=== PATIENT | female | born 1950 | race Caucasian/White ===

== ENCOUNTER 2018-04-13 00:57 | Emergency (ER) | payer MEDICARE ==
[2018-04-13 02:43] LABS: #Eosinphils 0.4 thou/uL (0.0-0.7); #Lymphocytes 1.7 thou/uL (1.20-3.40); #Monocytes 0.5 thou/uL (0.11-0.59); #Neutrophils 3.1 thou/uL (1.40-6.50); %Basophils 0.8 % (0.0-1.0); %Eosinophils 7.1 % (0.0-10.0); %Lymphocytes 29.4 % (21.0-51.0); %Monocytes 7.9 % (0.0-10.0); %Neutrophils 54.8 % (42.0-75.0); Hemoglobin 10.7 g/dL (12.0-16.0); Mean Corpuscular HGB CONC 33.4 g/dL (32.0-36.0); Mean Corpuscular Hemoglobin 28.3 pg (27.0-31.0); Mean Corpuscular Volume 84.6 fL (78.0-98.0); Mean Platelet Volume 8.1 fL (7.4-10.4); Platelet Count 286 thou/uL (130-400); RBC Distribution Width 13.2 % (11.5-14.5); White Blood Cell (WBC) Count 5.7 thou/uL (4.8-10.8)
[2018-04-13 03:02] LABS: ALT (SGPT) 8 U/L (8-55); AST (SGOT) 18 U/L (5-34); Albumin 3.9 g/dL (3.4-4.8); Alkaline Phosphatase 158 U/L (40-150); Anion Gap 16 mmol/L (10-20); BUN (Urea Nitrogen) 16 mg/dL (9.8-20.1); Bilirubin, Total 0.5 mg/dL (0.2-1.2); Calc. Creatinine Clearance 0 mL/min (70-130); Calcium 9.9 mg/dL (7.8-10.44); Carbon Dioxide 21 mmol/L (23-31); Chloride 104 mmol/L (98-107); Estimated GFR-MDRD 43; Globulin 4.3 g/dL (2.4-3.5); Glucose 90 mg/dL (80-115); Potassium 4.3 mmol/L (3.5-5.1); Protein, Total 8.2 g/dL (6.0-8.3); Sodium 137 mmol/L (136-145)
--- NOTE | 2018-04-13 09:23 | RAD ---
2 VIEWS RIGHT SHOULDER: Date: 04/13/18 COMPARISON: None. HISTORY: Fall, trauma, pain. FINDINGS: There is a nondisplaced, obliquely oriented fracture involving the distal aspect of the right clavicl e. No widening of the AC or CC interspace. No evidence for dislocation. IMPRESSION: Fracture involving the distal aspect of the right clavicle. POS: [facility]
--- NOTE | 2018-04-13 09:31 | RAD ---
LEFT HAND 3 VIEWS: Date: 04/13/18 COMPARISON: 08/05/14. HISTORY: Pain. FINDINGS: There is marked osteopenia, stable. There is an old, incompletely imaged fracture of the distal right radius. There are multifocal degenerative changes noted involving first interphalangeal joint, as we ll as multiple proximal and distal interphalangeal joints of the left hand. No displaced fracture or evidence of dislocation. No radiopaque foreign body or subcutaneous gas. There is a probable old frac ture involving the base of the fourth proximal phalanx. IMPRESSION: Chronic findings as described above. No acute findings are seen. POS: [facility]
== END 2018-04-13 04:05 | disposition home or self-care (01) ==
LOC: ERS 00:57
DX: S42.034A Nondisplaced fracture of lateral end of right clavicle, initial encounter for closed fracture (principal); K21.9 Gastro-esophageal reflux disease without esophagitis; Z85.3 Personal history of malignant neoplasm of breast; F41.9 Anxiety disorder, unspecified; F31.9 Bipolar disorder, unspecified; G47.00 Insomnia, unspecified; I11.0 Hypertensive heart disease with heart failure; I50.9 Heart failure, unspecified; W19.XXXA Unspecified fall, initial encounter
CPT/HCPCS: 36415; 80053; 85025

== ENCOUNTER 2018-06-13 14:04 | Emergency (ER) | payer MEDICARE ==
[2018-06-13 15:11] LABS: #Eosinphils 0.5 thou/uL (0.0-0.7); #Lymphocytes 1.6 thou/uL (1.20-3.40); #Monocytes 0.4 thou/uL (0.11-0.59); #Neutrophils 4.7 thou/uL (1.40-6.50); %Basophils 0.5 % (0.0-1.0); %Lymphocytes 22.4 % (21.0-51.0); %Neutrophils 64.1 % (42.0-75.0); Hemoglobin 8.5 g/dL (12.0-16.0); Mean Corpuscular HGB CONC 31.9 g/dL (32.0-36.0); Mean Corpuscular Hemoglobin 27.2 pg (27.0-31.0); Mean Corpuscular Volume 85.1 fL (78.0-98.0); Mean Platelet Volume 7.8 fL (7.4-10.4); Platelet Count 251 thou/uL (130-400); RBC Distribution Width 13.4 % (11.5-14.5); Red Blood Cell (RBC) Count 3.12 mill/uL (4.20-5.40); White Blood Cell (WBC) Count 7.3 thou/uL (4.8-10.8)
[2018-06-13 15:22] LABS: INR-International Normal Ratio 1.1; Prothrombin Time 14.7 SEC (12.0-14.7)
[2018-06-13 15:23] LABS: PTT 31.3 SEC (22.9-36.1)
[2018-06-13 15:33] LABS: ALT (SGPT) Less than 7 U/L (8-55); AST (SGOT) 9 U/L (5-34); Albumin 3.3 g/dL (3.4-4.8); Alkaline Phosphatase 117 U/L (40-150); Anion Gap 9 mmol/L (10-20); BUN (Urea Nitrogen) 21 mg/dL (9.8-20.1); Bilirubin, Total 0.3 mg/dL (0.2-1.2); Calc. Creatinine Clearance 0 mL/min (70-130); Calcium 8.5 mg/dL (7.8-10.44); Carbon Dioxide 26 mmol/L (23-31); Chloride 104 mmol/L (98-107); Estimated GFR-MDRD 50; Globulin 3.6 g/dL (2.4-3.5); Glucose 106 mg/dL (80-115); Iron 32 ug/dL (50-170); Iron Binding Capacity, Total 376 mcg/dL (265-497); Potassium 4.3 mmol/L (3.5-5.1); Protein, Total 6.9 g/dL (6.0-8.3); Sodium 135 mmol/L (136-145)
--- NOTE | 2018-06-13 15:35 | RAD ---
PORTABLE CHEST ONE VIEW: 06/13/2018 3:15 p.m. HISTORY: Abdominal pain. GI bleed. Vomiting. Coffee grounds emesis. COMPARISON: 11/09/2016 FINDINGS: The heart is enlarged. There is continued elevation of the right hemidiaphragm. The lungs are well expanded without lobar consolidation, pneumothoraces, she pulmonary edema, or pleural effusions. S urgical clips in the right axilla are again seen. IMPRESSION: No acute process. POS: [facility]
[2018-06-13] MEDS ORDERED: Pantoprazole 40 MG VIAL ONE (17:06)
== END 2018-06-13 20:26 | disposition left against medical advice (07) ==
LOC: ERS 14:04
DX: K92.1 Melena (principal); K21.9 Gastro-esophageal reflux disease without esophagitis; I11.0 Hypertensive heart disease with heart failure; I50.9 Heart failure, unspecified; G62.9 Polyneuropathy, unspecified; F41.9 Anxiety disorder, unspecified; F32.9 Major depressive disorder, single episode, unspecified; Z79.899 Other long term (current) drug therapy; Z79.891 Long term (current) use of opiate analgesic
CPT/HCPCS: 36415; 71045; 80053; 82728; 83540; 83550; 85025; 85610; 85730; 86850; 86900; 86901; 86922; 93005; 96361; 96374; C9113

== ENCOUNTER 2018-07-18 11:53 | Inpatient (IN) | payer MEDICARE ==
--- NOTE | 2018-07-18 14:54 | HP ---
DATE OF ADMISSION: 07/18/2018 PRIMARY CARE PHYSICIAN: Dr. Pino in [place]. REASON FOR ADMISSION: Transferred from [facility] emergency room for hypotension and ne ar syncope. HISTORY OF PRESENT ILLNESS: A 67-year-old female who has underlying history of hypertension who was initially evaluated at [facility] emergency room. The patient reports that yesterday ev ening she ate a cup of valdez beans and about [address] Espinal. Subsequently, she felt the urg e to go to bathroom. When she stood up at that time, she was feeling a little bit dizzy, but she was able to go to restroom. At that time, she had large diarrhea without any pus or blood. When she wa s trying to stand up from commode, she was feeling lightheaded and dizzy, but with some assistance, s he was able to go to her room. She had carpet in her room, but she does not know how she fell down o n the back of her head and she hit her head. She was aware of everything. She did not lose consciou sness. She was not having any headache. She did not have any chest pain, palpitations or shortness of breath, but she was exhausted and very weak. She has to crawl on her body to go to phone and call ed help. When she went to [facility] emergency room, the patient was found hypotensive. The patient was given 3 liters of IV fluid. She had a central line done. As per report, the patie nt was given Narcan. The patient was also given momentarily Levophed. She was found with acute kidn ey failure and subsequently, this patient was transferred to local emergency room and subsequently e patient wanted to transfer to our hospital. When she arrived to our emergency room, the patient was normotensive. She was talking perfectly fine . She was not hurting anywhere in her body. She was only irritated with a central line on her neck. She denies any chest pain or palpitations. She denies any fever or chills. She denies any UTI sym ptoms. She does not have any diarrhea since last bowel movement. She denies any abdominal pain. e denies any focal motor or sensory symptoms. She denies any seizure-like activity. REVIEW OF SYSTEMS: The following complete review of systems was negative, unless otherwise mentioned in the HPI or below: Constitutional: Weight loss or gain, ability to conduct usual activities. Sk in: Rash, itching. Eyes: Double vision, pain. ENT/Mouth: Nose bleeding, neck stiffness, pain, te nderness. Cardiovascular: Palpitations, dyspnea on exertion, orthopnea. Respiratory: Shortness of breath, wheezing, cough, hemoptysis, fever or night sweats. Gastrointestinal: Poor appetite, abdom inal pain, heartburn, nausea, vomiting, constipation, or diarrhea. Genitourinary: Urgency, frequenc y, dysuria, nocturia. Musculoskeletal: Pain, swelling. Neurologic/Psychiatric: Anxiety, depressio n. Allergy/Immunologic: Skin rash, bleeding tendency. Please see my HPI for pertinent positive and negative. All other review of systems reviewed and negative except as mentioned in the HPI. ADDITIONAL INFORMATION: As per report, the patient had a fentanyl patch on her body and she was give n Narcan and she woke up, but the patient reports that this is not true because the patient was given prescription for fentanyl patch and she received it from her pharmacy about a week ago, but it was t oo expensive and that is why the patient tells me that she [facility]. She only takes [place] as needed basis for her pain. She herself claims that she is not abusin g any kind of narcotic medication. 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 PAST SURGICAL HISTORY: Plate in her left wrist and subsequently removed that plate from the left wri st, appendicectomy, carpal tunnel surgery, cholecystectomy, hysterectomy, oophorectomy, bilateral mas tectomy with reconstruction. PAST PSYCHIATRIC HISTORY: Anxiety, depression, insomnia. SOCIAL HISTORY: The patient lives at home by herself. No history of tobacco, alcohol or illicit adolfo g abuse. She is able to ambulate by herself without any need of walker or cane. FAMILY HISTORY: Father has a history of coronary artery disease, congestive heart failure. Mother h ad history of breast cancer and congestive heart failure. ALLERGIES: No known drug allergy. CURRENT HOME MEDICATIONS: The patient does not have any medication with her at this point. Based on record, the patient is on following medications: Xanax 0.25 mg p.o. 3 times daily, Coreg 3.125 mg t wice daily, estradiol 2 mg daily, hydrochlorothiazide 12.5 mg p.o. daily, lisinopril 5 mg p.o. daily, Protonix 40 mg p.o. daily, Lyrica 75 mg twice daily, Phenergan 25 mg every 4 hourly p.r.n., triazola m 0.25 mg p.o. daily. EMERGENCY ROOM COURSE: The patient is given IV fluid at [facility] emergency room. PHYSICAL EXAMINATION: VITAL SIGNS: Most recently, blood pressure 117/49, pulse 67, respiratory rate 20, temperature 98.4, saturation 100% on room air, weight 79.4 kilograms. GENERAL: The patient is currently alert, awake, in no obvious acute distress. HEAD: Normocephalic, atraumatic. EYES: Pupils round and reactive to light. Extraocular muscle intact. ENT: Oropharynx within normal limits. Moist mucous membranes. No oral lesion, no pharyngeal erythe ma, no exudate. NECK: Supple. No JVD, no thyromegaly, no carotid bruit. Central line in place in the right side of the neck. LUNGS: Clear to auscultation without any rhonchi or rales. CARDIAC: S1, S2 regular. No murmur, no gallop, no rub. ABDOMEN: Soft, bowel sounds present, nontender, nondistended. No organomegaly, no mass, no suprapub ic tenderness. BACK: Unremarkable. No CVA tenderness. EXTREMITIES: Upper extremities, passive movement of all joints are normal. Lower extremities, no ed mariah. Good distal pulsation. SKIN: No skin rash. HEMATOLOGICAL: No lymphadenopathy. PSYCHIATRIC: Normal affect. SIGNIFICANT LABORATORY DATA: Glucose 136, BUN 54, creatinine 3.68. Sodium 133, potassium 4.3, chlor [place] 107, carbon dioxide 19, calcium 8.0. LFT, AST 10, ALT 6, alkaline phosphatase 123, albumin 3.2, anion gap 7. Lactic acid 1.4. CBC, WBC 7.2, hemoglobin 8.2, platelet 280,000. ASSESSMENT AND PLAN: 1. Acute kidney failure, prerenal etiology. 2. Hypotension, improved with IV fluid. 3. Near syncopal episode. 4. Fall at home. 5. History of hypertension. 6. History of gastroesophageal reflux disease. 7. Chronic diastolic congestive heart failure, currently compensated. 8. Peripheral neuropathy. 9. Reflex sympathetic dystrophy on chronic pain medication. PLAN: Full admission to telemetry floor. Cardiac monitoring. CT brain to rule out any intracranial process given the patient had a fall on her head. IV fluid. Repeat lab testing tomorrow. Urinalys is, renal ultrasound. Avoid nephrotoxin agent. Strict monitoring input output chart. Monitor neuro status. Resume selected home medication. We will hold antihypertensive medication because of curre ntly relatively low blood pressure. Watch for any fluid overload. Obtain echocardiography. Deep venous thrombosis prophylaxis, heparin 5000 units subcu twice daily. Gastrointestinal prophylax is, Protonix 40 mg p.o. daily. CODE STATUS: The patient is full code. The patient does not have any surrogate decision maker. Disposition plan based on clinical course. We are expecting the patient's stay in hospital more than 2 midnights. Plan of care discussed with the patient in detail.
[2018-07-18 15:45] VITALS: BMI 30.2
[2018-07-18] MEDS ORDERED: hydrALAZINE 20 MG/ML VIAL SLOW IVP PRN (15:46)
[2018-07-18] MEDS ORDERED: Acetaminophen 325 MG TAB PO PRN (15:46)
[2018-07-18] MEDS ORDERED: Loratadine 10 MG TAB PO PRN (15:46)
[2018-07-18] MEDS ORDERED: Sodium Chloride 0.65% Nasal 44 ML BOT EA NARE PRN (15:46)
[2018-07-18] MEDS ORDERED: Eucerin (Mineral Oil/Petrolatum,White) 30 gm Jar TOP PRN (15:46)
[2018-07-18] MEDS ORDERED: Bisacodyl 5 MG TAB PO PRN (15:46)
[2018-07-18] MEDS ORDERED: ALPRAZolam 0.25 MG TAB PO PRN (15:46)
[2018-07-18] MEDS ORDERED: HYDROcodone/Acetaminophen 5/325 mg Tablet PO PRN (15:46)
[2018-07-18] MEDS ORDERED: Ondansetron PF 4 MG/2 ML Vial IVP PRN (15:46)
[2018-07-18] MEDS ORDERED: Bisacodyl 10 MG SUPP PR PRN (15:46)
[2018-07-18] MEDS ORDERED: Artificial Tears 18 DROP/0.9 ML EA EYE PRN (15:46)
[2018-07-18] MEDS ORDERED: Diabetic Tussin 200 MG/10 ML UDCUP PO PRN (15:46)
[2018-07-18] MEDS ORDERED: Cepastat Lozenges 1 LOZ PO PRN (15:46)
[2018-07-18] MEDS ORDERED: Ondansetron ODT 4 MG TAB PO PRN (15:46)
[2018-07-18] MEDS ORDERED: Senokot S 8.6-50 MG TAB PO PRN (15:46)
[2018-07-18] MEDS ORDERED: Loperamide HCl 2 MG CAP PO PRN (15:46)
--- NOTE | 2018-07-18 17:11 | ULT ---
RENAL ULTRASOUND: 07/18/18 HISTORY: Acute renal failure. Multiple longitudinal and transverse images of the kidneys and bladder is obtained using a multihertz curvilinear transducer. Real time and color flow images demonstrate both kidneys to demonstrate gerard ical thinning and some renal atrophy. The right kidney measures 9.6 and left kidney 8.9 cm from pole to pole. No evidence of hydronephrosis or renal mass is seen. The urinary bladder is decompressed due to an indwelling Funez catheter. IMPRESSION: 1. No evidence of ureteral or urinary obstruction. 2. Cortical atrophy of the kidneys. POS: [facility]
--- NOTE | 2018-07-18 17:30 | CT ---
CT BRAIN 07/18/18 HISTORY: Fall. Patient hit back of head. Noncontrast enhanced CT images of the brain obtained. Radiopaque debris is seen in the left external auditory canal. No evidence of acute intracranial masses, hemorrhages, strokes or contusions seen. Ventricles are of normal size. IMPRESSION: Unremarkable CT brain with no evidence of acute intracranial pathology seen. POS: [facility]
[2018-07-18] MEDS: Sodium Chloride 0.9% 1,000 ML IV SCH (18:01)
[2018-07-18 20:22] LABS: Bilirubin Negative (Negative); Blood, Urine Large (Negative); Clarity CLOUDY (Clear); Glucose, Urine (Dipstick) Negative (Negative); Leukocyte Moderate (Negative); Nitrite Negative (Negative); Protein, Urine (Dipstick) 30 mg/dL (Neg-Trace); Specific Gravity, Urine 1.013 (1.002-1.036); Urobilinogen 0.2 mg/dL (0.2-1.0)
[2018-07-18 20:25] LABS: Bacteria/HPF None Seen HPF (None Seen)
[2018-07-18 20:26] LABS: Pathc Cast-AUWi Flag 6.25 (0-2.49); Yeast-AUWi Flag 218.3 (0-25.0)
[2018-07-18 20:32] LABS: RBC/HPF 21-50 HPF (0-3)
[2018-07-18 20:33] LABS: Hyaline Casts/LPF 0-3 HYALINE CAST LPF (0-3 Hyaline); Other Casts/LPF None Seen LPF (0-3 Hyaline); Renal Epithelial 0-3 HPF (0-3); Transitional Epithelial 0-3 HPF (0-3); Yeast-All Forms None Seen HPF (None Seen)
[2018-07-18 20:40] LABS: Creatinine, Urine 93.69 mg/dL (47-110)
[2018-07-18] MEDS ORDERED: Pregabalin 25 MG CAP PO SCH (21:00)
[2018-07-18] MEDS: Heparin 5,000 UNITS/ML VIAL SC SCH (21:02)
[2018-07-18] MEDS ORDERED: Pregabalin 75 MG CAP PO SCH (22:30)
[2018-07-18] MEDS ORDERED: Venlafaxine HCl XR 75 MG CAP PO SCH (22:30)
[2018-07-18] MEDS: Zolpidem Tartrate 5 MG TAB PO PRN (22:41)
[2018-07-19] MEDS: Sodium Chloride 0.9% 1,000 ML IV SCH (05:44)
[2018-07-19 06:25] LABS: #Eosinphils 0.2 thou/uL (0.0-0.7); #Lymphocytes 1.6 thou/uL (1.20-3.40); #Monocytes 0.4 thou/uL (0.11-0.59); #Neutrophils 2.5 thou/uL (1.40-6.50); %Basophils 0.2 % (0.0-1.0); %Eosinophils 3.6 % (0.0-10.0); %Lymphocytes 34.4 % (21.0-51.0); %Neutrophils 53.9 % (42.0-75.0); Hemoglobin 7.9 g/dL (12.0-16.0); Mean Corpuscular HGB CONC 31.4 g/dL (32.0-36.0); Mean Corpuscular Hemoglobin 26.1 pg (27.0-31.0); Mean Corpuscular Volume 83.2 fL (78.0-98.0); Mean Platelet Volume 8.3 fL (7.4-10.4); Platelet Count 224 thou/uL (130-400); RBC Distribution Width 13.6 % (11.5-14.5); Red Blood Cell (RBC) Count 3.04 mill/uL (4.20-5.40); White Blood Cell (WBC) Count 4.6 thou/uL (4.8-10.8)
[2018-07-19 06:35] LABS: ALT (SGPT) Less than 7 U/L (8-55); AST (SGOT) 10 U/L (5-34); Alkaline Phosphatase 108 U/L (40-150); Anion Gap 9 mmol/L (10-20); BUN (Urea Nitrogen) 37 mg/dL (9.8-20.1); Bilirubin, Total Less than 0.2 mg/dL (0.2-1.2); Calc. Creatinine Clearance 38 mL/min (70-130); Calcium 8.2 mg/dL (7.8-10.44); Carbon Dioxide 22 mmol/L (23-31); Chloride 111 mmol/L (98-107); Estimated GFR-MDRD 26; Glucose 88 mg/dL (80-115); Magnesium 1.6 mg/dL (1.6-2.6); Potassium 4.6 mmol/L (3.5-5.1); Sodium 137 mmol/L (136-145)
[2018-07-19] MEDS ORDERED: HYDROcodone/Acetaminophen 10/325 mg Tablet PO PRN (07:04)
[2018-07-19] MEDS ORDERED: traMADol HCl 50 MG TAB PO PRN (07:04)
[2018-07-19] MEDS: cefTRIAXone\\ROCEPHIN 1 GM in Sodium Chloride 0.9% 100 ML IVPB SCH (08:03)
[2018-07-19] MEDS: Dextrose 5 %-0.45 % NaCl 1,000 ML IV SCH (08:03)
[2018-07-19] MEDS ORDERED: Venlafaxine HCl XR 75 MG CAP PO SCH ×2 (09:00→21:00)
[2018-07-19] MEDS: ALPRAZolam 1 MG TAB PO SCH ×2 (09:14→23:30)
[2018-07-19] MEDS: Aspirin 81 mg Enteric Coated Tablet PO SCH (09:14)
[2018-07-19] MEDS: Heparin 5,000 UNITS/ML VIAL SC SCH ×2 (09:14→22:24)
[2018-07-19] MEDS ORDERED: guaiFENesin ER 600 MG TAB PO SCH (09:45)
[2018-07-19] MEDS: Pregabalin 75 MG CAP PO SCH ×2 (10:14→22:23)
[2018-07-19] MEDS: Saccharomyces boulardii 250 MG CAP PO SCH (10:15)
[2018-07-19] MEDS: Carvedilol 6.25 MG TAB PO SCH ×2 (10:15→22:24)
[2018-07-19 10:16] LABS: Lactic Acid 0.6 mmol/L (0.5-2.2)
--- NOTE | 2018-07-19 10:25 | PDOC.PN ---
- Subjective Encounter Start Date: 07/19/18 Encounter Start Time: 07:15 -: old records requested/rev pt feels postnasal drip, no dyspnea, no chest pain, feels better - Objective Resuscitation Status: Resuscitation Status FULL:Full Resuscitation MAR Reviewed: Yes Vital Signs & Weight: Vital Signs (12 hours) Temp Pulse Resp BP Pulse Ox 07/19/18 07:56 98.9 F 64 18 149/65 H 95 07/19/18 03:51 98.7 F 63 20 129/62 95 Weight Weight 185 lb I&O: 07/18/18 07/19/18 07/20/18 07:59 06:59 06:59 Intake Total Output Total Balance Result Diagrams: 07/19/18 06:08 07/19/18 06:08 EKG Reviewed by me: Yes (nsr) Phys Exam - Physical Examination Constitutional: NAD HEENT: PERRLA, moist MMs, sclera anicteric Neck: no JVD, supple Respiratory: no wheezing, no rales, no rhonchi Cardiovascular: RRR, no significant murmur, no rub Gastrointestinal: soft, non-tender, no distention, positive bowel sounds Musculoskeletal: no edema, pulses present Neurological: non-focal, normal sensation Lymphatic: no nodes Psychiatric: normal affect, A&O x 3 Skin: no rash, normal turgor Dx/Plan (1) Acute kidney failure Status: Acute Comment: improving (2) Fall at home Code(s): W19.XXXA - UNSPECIFIED FALL, INITIAL ENCOUNTER; Y92.009 - [facility] Status: Acute (3) Hypotension Status: Resolved (4) Metabolic acidosis Code(s): E87.2 - ACIDOSIS Status: Acute (5) Near syncope Status: Acute (6) UTI (urinary tract infection) Status: Acute (7) Anemia, normocytic normochromic Code(s): D64.9 - ANEMIA, UNSPECIFIED Status: Chronic (8) Anxiety and depression Code(s): F41.9 - ANXIETY DISORDER, UNSPECIFIED; F32.9 - MAJOR DEPRESSIVE DISORDER, SINGLE EPISODE, UNSPECIFIED Status: Chronic (9) Chronic stage c diastolic heart failure Code(s): I50.32 - CHRONIC DIASTOLIC (CONGESTIVE) HEART FAILURE Status: Chronic (10) GERD (gastroesophageal reflux disease) Code(s): K21.9 - GASTRO-ESOPHAGEAL REFLUX DISEASE WITHOUT ESOPHAGITIS Status: Chronic (11) HTN (hypertension) Code(s): I10 - ESSENTIAL (PRIMARY) HYPERTENSION Status: Chronic (12) Hypothyroidism Code(s): E03.9 - HYPOTHYROIDISM, UNSPECIFIED Status: Chronic - Plan cont current plan of care, continue antibiotics, PT/OT * send urine culture * start rocephin 1 gm iv daily * echo pending today * change IVF dex NS at 50 ml per hour * repeat labs tomorrow * medication reviewed as below * symptomatic treatment. * home medication reconciled Review of Systems - Review of Systems ENT: negative: Ear Pain, Ear Discharge, Nose Pain, Nose Discharge, Nose Congestion, Mouth Pain, Mouth Swelling, Throat Pain, Throat Swelling, Other Respiratory: negative: Cough, Dry, Shortness of Breath, Hemoptysis, SOB with Excertion, Pleuritic Pain, Sputum, Wheezing Cardiovascular: negative: chest pain, palpitations, orthopnea, paroxysmal nocturnal dyspnea, edema, light headedness, other Gastrointestinal: negative: Nausea, Vomiting, Abdominal Pain, Diarrhea, Constipation, Melena, Hematochezia, Other Genitourinary: negative: Dysuria, Frequency, Incontinence, Hematuria, Retention , Other Musculoskeletal: negative: Neck Pain, Shoulder Pain, Arm Pain, Back Pain, Hand Pain, Leg Pain, Foot Pain, Other Skin: negative: Rash, Lesions, Ming, Bruising, Other - Medications/Allergies Allergies/Adverse Reactions: Allergies Allergy/AdvReac Type Severity Reaction Status Date / Time No Known Drug Allergies Allergy Verified 01/29/16 12:05 Medications: Current Medications Acetaminophen (Tylenol) 650 mg PO Q4H PRN PRN Reason: Headache/Fever/Mild Pain (1-3) Hydrocodone Bitart/Acetaminophen ([place] 5/325) 1 tab PO Q4H PRN PRN Reason: Moderate Pain (4-6) Hydrocodone Bitart/Acetaminophen ([place] 10/325) 2 tab PO Q4HR PRN PRN Reason: SEVERE Pain (7-10) Alprazolam (Xanax) 1 mg PO BID [facility] Last Admin: 07/19/18 09:14 Dose: Not Given Artificial Tears (Tears Naturale) 2 drop EA EYE PRN PRN PRN Reason: Dry Eyes Aspirin (Ecotrin) 81 mg PO DAILY [facility] Last Admin: 07/19/18 09:14 Dose: Not Given Bisacodyl (Dulcolax) 10 mg PO DAILYPRN PRN PRN Reason: Constipation Bisacodyl (Dulcolax) 10 mg [place] DAILYPRN PRN PRN Reason: Constipation Carvedilol (Coreg) 6.25 mg PO BID [facility] Last Admin: 07/19/18 10:15 Dose: 6.25 mg Estradiol (Estrace) 2 mg PO HS [facility] Guaifenesin (Robitussin Sf) 200 mg PO Q4H PRN PRN Reason: Cough Guaifenesin (Mucinex) 600 mg PO Q12HR [facility] Guaifenesin (Mucinex) 600 mg PO NOW [facility] Stop: 07/19/18 12:00 Last Admin: 07/19/18 10:17 Dose: 600 mg Heparin Sodium (Porcine) (Heparin) 5,000 units SC BID [facility] Last Admin: 07/19/18 09:14 Dose: Not Given Hydralazine HCl (Apresoline) 10 mg SLOW IVP Q4H PRN PRN Reason: SBP > 180 and HR < 70 Dextrose/Sodium Chloride (D5 1/2 Ns) 1,000 mls @ 50 mls/hr IV .Q20H [facility] Last Admin: 07/19/18 08:03 Dose: 1,000 mls Ceftriaxone Sodium 1 gm/ (Sodium Chloride) 100 mls @ 200 mls/hr IVPB Q24HR [facility] Last Admin: 07/19/18 08:03 Dose: 100 mls Loperamide HCl (Imodium) 2 mg PO PRN PRN PRN Reason: Diarrhea/Loose Stools Loratadine (Claritin) 10 mg PO DAILYPRN PRN PRN Reason: Sinus Symptoms Mineral Oil/White Petrolatum (Eucerin Cream) 0 gm TOP BIDPRN PRN PRN Reason: Dry Skin Non-Formulary Medication (Levothyroxine Sodium [Levothyroxine Sodium]) 1 tab PO QAM [facility] Ondansetron HCl (Zofran Odt) 4 mg PO Q6H PRN PRN Reason: Nausea/Vomiting Ondansetron HCl (Zofran) 4 mg IVP Q6H PRN PRN Reason: Nausea/Vomiting Pantoprazole Sodium (Protonix) 40 mg PO DAILY [facility] Last Admin: 07/19/18 10:14 Dose: 40 mg Patient's Home Medication - Triazolam 2 each PO HS [facility] Pregabalin (Lyrica) 75 mg PO BID [facility] Last Admin: 07/19/18 10:14 Dose: 75 mg Saccharomyces Boulardii (Florastor) 250 mg PO DAILY [facility] Last Admin: 07/19/18 10:15 Dose: 250 mg Senna/Docusate Sodium (Senokot S) 2 tab PO BID PRN PRN Reason: Constipation Sodium Chloride ([place] Nasal [place] 0.65%) 0 ml EA NARE QIDPRN PRN PRN Reason: Nasal Congestion Sodium Chloride (Flush - Normal Saline) 10 ml IVF Q12HR [facility] Last Admin: 07/19/18 10:13 Dose: 10 ml Sodium Chloride (Flush - Normal Saline) 10 ml IVF PRN PRN PRN Reason: Saline Flush Throat Lozenges (Cepastat Lozenges) 1 gia PO Q2H PRN PRN Reason: Sore Throat Tramadol HCl (Ultram) 100 mg PO Q12H PRN PRN Reason: Pain (1-5) Venlafaxine HCl (Effexor Xr) 75 mg PO HS [facility] Zolpidem Tartrate (Ambien) 5 mg PO HSPRN PRN PRN Reason: Insomnia Last Admin: 07/18/18 22:41 Dose: 5 mg
[2018-07-19] MEDS ORDERED: TRIAZOLAM PO SCH (21:00)
[2018-07-19] MEDS: Estradiol 1 MG TAB PO SCH (22:24)
[2018-07-19] MEDS: guaiFENesin ER 600 MG TAB PO SCH (22:25)
[2018-07-19] MEDS: Venlafaxine HCl XR 75 MG CAP PO SCH (22:30)
[2018-07-19] MEDS ORDERED: ALPRAZolam 1 MG TAB PO PRN (23:00)
[2018-07-19] MEDS: Levothyroxine Sodium 88 MCG TAB PO SCH (23:56)
[2018-07-20] MEDS: Zolpidem Tartrate 5 MG TAB PO PRN (01:18)
[2018-07-20] MEDS: Dextrose 5 %-0.45 % NaCl 1,000 ML IV SCH (02:40)
[2018-07-20 06:33] LABS: #Eosinphils 0.2 thou/uL (0.0-0.7); #Lymphocytes 1.8 thou/uL (1.20-3.40); #Monocytes 0.4 thou/uL (0.11-0.59); #Neutrophils 2.1 thou/uL (1.40-6.50); %Basophils 0.9 % (0.0-1.0); %Eosinophils 5.3 % (0.0-10.0); %Lymphocytes 39.3 % (21.0-51.0); %Monocytes 8.3 % (0.0-10.0); %Neutrophils 46.2 % (42.0-75.0); Hemoglobin 7.9 g/dL (12.0-16.0); Mean Corpuscular HGB CONC 32.1 g/dL (32.0-36.0); Mean Corpuscular Hemoglobin 26.8 pg (27.0-31.0); Mean Corpuscular Volume 83.3 fL (78.0-98.0); Mean Platelet Volume 8.6 fL (7.4-10.4); Platelet Count 214 thou/uL (130-400); RBC Distribution Width 13.7 % (11.5-14.5); Red Blood Cell (RBC) Count 2.94 mill/uL (4.20-5.40); White Blood Cell (WBC) Count 4.5 thou/uL (4.8-10.8)
[2018-07-20] MEDS ORDERED: ALPRAZolam 1 MG TAB PO PRN (07:05)
[2018-07-20 07:26] LABS: Anion Gap 8 mmol/L (10-20); BUN (Urea Nitrogen) 22 mg/dL (9.8-20.1); Calc. Creatinine Clearance 61 mL/min (70-130); Calcium 8.6 mg/dL (7.8-10.44); Carbon Dioxide 23 mmol/L (23-31); Chloride 109 mmol/L (98-107); Estimated GFR-MDRD 44; Glucose 95 mg/dL (80-115); Potassium 4.3 mmol/L (3.5-5.1); Sodium 136 mmol/L (136-145)
[2018-07-20] MEDS: Heparin 5,000 UNITS/ML VIAL SC SCH ×2 (09:26→21:08)
--- NOTE | 2018-07-20 09:28 | PDOC.PN ---
- Subjective Encounter Start Date: 07/20/18 Encounter Start Time: 07:10 Patient seen and examined. No new complaints. No overnight events - Objective Resuscitation Status: Resuscitation Status FULL:Full Resuscitation MAR Reviewed: Yes Vital Signs & Weight: Vital Signs (12 hours) Temp Pulse Resp BP BP Pulse Ox 07/20/18 07:27 97.8 F 59 L 12 134/59 L 95 07/20/18 04:00 97.9 F 58 L 20 143/61 H 95 07/19/18 22:24 148/60 H Weight Weight 189 lb I&O: 07/19/18 07/20/18 07/21/18 06:59 06:59 06:59 Intake Total 1300 1080 Output Total Balance 1300 1080 Result Diagrams: 07/20/18 05:45 07/20/18 05:45 EKG Reviewed by me: Yes (nsr) Phys Exam - Physical Examination Constitutional: NAD HEENT: PERRLA, moist MMs, sclera anicteric Neck: no JVD, supple Respiratory: no wheezing, no rales, no rhonchi Cardiovascular: RRR, no significant murmur, no rub Gastrointestinal: soft, non-tender, no distention, positive bowel sounds Musculoskeletal: no edema, pulses present Neurological: non-focal, normal sensation, moves all 4 limbs Psychiatric: normal affect, A&O x 3 Skin: no rash, normal turgor Dx/Plan (1) Acute kidney failure Status: Acute Comment: improving (2) Fall at home Code(s): W19.XXXA - UNSPECIFIED FALL, INITIAL ENCOUNTER[facility] Status: Acute (3) Hypotension Status: Resolved (4) Metabolic acidosis Code(s): E87.2 - ACIDOSIS Status: Acute (5) Near syncope Status: Acute (6) UTI (urinary tract infection) Status: Acute (7) Anemia, normocytic normochromic Code(s): D64.9 - ANEMIA, UNSPECIFIED Status: Chronic (8) Anxiety and depression Code(s): F41.9 - ANXIETY DISORDER, UNSPECIFIED; F32.9 - MAJOR DEPRESSIVE DISORDER, SINGLE EPISODE, UNSPECIFIED Status: Chronic (9) Chronic stage c diastolic heart failure Code(s): I50.32 - CHRONIC DIASTOLIC (CONGESTIVE) HEART FAILURE Status: Chronic (10) GERD (gastroesophageal reflux disease) Code(s): K21.9 - GASTRO-ESOPHAGEAL REFLUX DISEASE WITHOUT ESOPHAGITIS Status: Chronic (11) HTN (hypertension) Code(s): I10 - ESSENTIAL (PRIMARY) HYPERTENSION Status: Chronic (12) Hypothyroidism Code(s): E03.9 - HYPOTHYROIDISM, UNSPECIFIED Status: Chronic - Plan cont current plan of care, continue antibiotics, PT/OT * renal function has improved, will DC IVF * echo result pending * continue rocephin and follow on urine culture result * ambulate as tolerated * will plan for discharge tomorrow * medication reviewed as below * symptomatic treatment. Review of Systems - Review of Systems ENT: negative: Ear Pain, Ear Discharge, Nose Pain, Nose Discharge, Nose Congestion, Mouth Pain, Mouth Swelling, Throat Pain, Throat Swelling, Other Respiratory: negative: Cough, Dry, Shortness of Breath, Hemoptysis, SOB with Excertion, Pleuritic Pain, Sputum, Wheezing Cardiovascular: negative: chest pain, palpitations, orthopnea, paroxysmal nocturnal dyspnea, edema, light headedness, other Gastrointestinal: negative: Nausea, Vomiting, Abdominal Pain, Diarrhea, Constipation, Melena, Hematochezia, Other Genitourinary: negative: Dysuria, Frequency, Incontinence, Hematuria, Retention , Other Musculoskeletal: negative: Neck Pain, Shoulder Pain, Arm Pain, Back Pain, Hand Pain, Leg Pain, Foot Pain, Other Skin: negative: Rash, Lesions, Ming, Bruising, Other - Medications/Allergies Allergies/Adverse Reactions: Allergies Allergy/AdvReac Type Severity Reaction Status Date / Time No Known Drug Allergies Allergy Verified 01/29/16 12:05 Medications: Current Medications Acetaminophen (Tylenol) 650 mg PO Q4H PRN PRN Reason: Headache/Fever/Mild Pain (1-3) Hydrocodone Bitart/Acetaminophen ([place] 5/325) 1 tab PO Q4H PRN PRN Reason: Moderate Pain (4-6) Hydrocodone Bitart/Acetaminophen ([place] 10/325) 2 tab PO Q4HR PRN PRN Reason: SEVERE Pain (7-10) Alprazolam (Xanax) 1 mg PO BID PRN PRN Reason: Anxiety/Restlessness/Sleep Artificial Tears (Tears Naturale) 2 drop EA EYE PRN PRN PRN Reason: Dry Eyes Aspirin (Ecotrin) 81 mg PO DAILY [facility] Last Admin: 07/19/18 09:14 Dose: Not Given Bisacodyl (Dulcolax) 10 mg PO DAILYPRN PRN PRN Reason: Constipation Bisacodyl (Dulcolax) 10 mg [place] DAILYPRN PRN PRN Reason: Constipation Carvedilol (Coreg) 6.25 mg PO BID [facility] Last Admin: 07/19/18 22:24 Dose: 6.25 mg Estradiol (Estrace) 2 mg PO HS [facility] Last Admin: 07/19/18 22:24 Dose: 2 mg Guaifenesin (Robitussin Sf) 200 mg PO Q4H PRN PRN Reason: Cough Guaifenesin (Mucinex) 600 mg PO Q12HR [facility] Last Admin: 07/19/18 22:25 Dose: 600 mg Heparin Sodium (Porcine) (Heparin) 5,000 units SC BID [facility] Last Admin: 07/19/18 22:24 Dose: Not Given Hydralazine HCl (Apresoline) 10 mg SLOW IVP Q4H PRN PRN Reason: SBP > 180 and HR < 70 Ceftriaxone Sodium 1 gm/ (Sodium Chloride) 100 mls @ 200 mls/hr IVPB Q24HR [facility] Last Admin: 07/19/18 08:03 Dose: 100 mls Levothyroxine Sodium (Synthroid) 1 mcg PO QAM [facility] Last Admin: 07/19/18 23:56 Dose: Not Given Loperamide HCl (Imodium) 2 mg PO PRN PRN PRN Reason: Diarrhea/Loose Stools Loratadine (Claritin) 10 mg PO DAILYPRN PRN PRN Reason: Sinus Symptoms Mineral Oil/White Petrolatum (Eucerin Cream) 0 gm TOP BIDPRN PRN PRN Reason: Dry Skin Ondansetron HCl (Zofran Odt) 4 mg PO Q6H PRN PRN Reason: Nausea/Vomiting Ondansetron HCl (Zofran) 4 mg IVP Q6H PRN PRN Reason: Nausea/Vomiting Pantoprazole Sodium (Protonix) 40 mg PO DAILY [facility] Last Admin: 07/19/18 10:14 Dose: 40 mg Pregabalin (Lyrica) 75 mg PO BID [facility] Last Admin: 07/19/18 22:23 Dose: 75 mg Saccharomyces Boulardii (Florastor) 250 mg PO DAILY [facility] Last Admin: 07/19/18 10:15 Dose: 250 mg Senna/Docusate Sodium (Senokot S) 2 tab PO BID PRN PRN Reason: Constipation Sodium Chloride ([place] Nasal [place] 0.65%) 0 ml EA NARE QIDPRN PRN PRN Reason: Nasal Congestion Sodium Chloride (Flush - Normal Saline) 10 ml IVF Q12HR [facility] Last Admin: 07/19/18 22:25 Dose: 10 ml Sodium Chloride (Flush - Normal Saline) 10 ml IVF PRN PRN PRN Reason: Saline Flush Throat Lozenges (Cepastat Lozenges) 1 gia PO Q2H PRN PRN Reason: Sore Throat Tramadol HCl (Ultram) 100 mg PO Q12H PRN PRN Reason: Pain (1-5) Venlafaxine HCl (Effexor Xr) 75 mg PO [facility] Last Admin: 07/19/18 22:30 Dose: 75 mg Zolpidem Tartrate (Ambien) 5 mg PO HSPRN PRN PRN Reason: Insomnia Last Admin: 07/20/18 01:18 Dose: 5 mg
[2018-07-20] MEDS: cefTRIAXone\\ROCEPHIN 1 GM in Sodium Chloride 0.9% 100 ML IVPB SCH (09:41)
[2018-07-20] MEDS: Aspirin 81 mg Enteric Coated Tablet PO SCH (09:42)
[2018-07-20] MEDS: Carvedilol 6.25 MG TAB PO SCH ×2 (09:43→21:01)
[2018-07-20] MEDS: Levothyroxine Sodium 88 MCG TAB PO SCH (09:43)
[2018-07-20] MEDS: Pregabalin 75 MG CAP PO SCH ×2 (09:43→21:03)
[2018-07-20] MEDS: guaiFENesin ER 600 MG TAB PO SCH ×2 (09:44→21:02)
[2018-07-20] MEDS: Saccharomyces boulardii 250 MG CAP PO SCH (09:44)
[2018-07-20] MEDS: Estradiol 1 MG TAB PO SCH (21:02)
[2018-07-20] MEDS: Venlafaxine HCl XR 75 MG CAP PO SCH (21:03)
[2018-07-21] MEDS: Zolpidem Tartrate 5 MG TAB PO PRN (00:21)
[2018-07-21 07:34] VITALS: BP 150/70; TEMP 98.7
--- NOTE | 2018-07-21 09:21 | PDOC.PN ---
- Subjective Encounter Start Date: 07/21/18 Encounter Start Time: 07:10 - Objective Resuscitation Status: Resuscitation Status FULL:Full Resuscitation MAR Reviewed: Yes Vital Signs & Weight: Vital Signs (12 hours) Temp Pulse Resp BP Pulse Ox 07/21/18 07:22 98.7 F 73 16 150/70 H 96 07/21/18 00:00 97.8 F 63 16 156/67 H Weight Weight 187 lb 8 oz I&O: 07/20/18 07/21/18 07/22/18 06:59 06:59 06:59 Intake Total 1300 1840 Output Total 1000 Balance 1300 840 Result Diagrams: 07/20/18 05:45 07/20/18 05:45 EKG Reviewed by me: Yes Phys Exam - Physical Examination Constitutional: NAD HEENT: PERRLA, moist MMs, sclera anicteric Neck: no JVD, supple Respiratory: no wheezing, no rales, no rhonchi Cardiovascular: RRR, no significant murmur, no rub Gastrointestinal: soft, non-tender, no distention, positive bowel sounds Musculoskeletal: no edema, pulses present Neurological: non-focal, normal sensation, moves all 4 limbs Lymphatic: no nodes Psychiatric: normal affect, A&O x 3 Skin: no rash, normal turgor Dx/Plan (1) Acute kidney failure Status: Acute Comment: improving (2) Fall at home Code(s): W19.XXXA - UNSPECIFIED FALL, INITIAL ENCOUNTER; Y92.009 - UNSP PLACE IN UNSP NON-INSTITUT (PRIVATE) RESIDENCE PLACE Status: Acute (3) Hypotension Status: Resolved (4) Metabolic acidosis Code(s): E87.2 - ACIDOSIS Status: Acute (5) Near syncope Status: Acute (6) UTI (urinary tract infection) Status: Acute (7) Anemia, normocytic normochromic Code(s): D64.9 - ANEMIA, UNSPECIFIED Status: Chronic (8) Anxiety and depression Code(s): F41.9 - ANXIETY DISORDER, UNSPECIFIED; F32.9 - MAJOR DEPRESSIVE DISORDER, SINGLE EPISODE, UNSPECIFIED Status: Chronic (9) Chronic stage c diastolic heart failure Code(s): I50.32 - CHRONIC DIASTOLIC (CONGESTIVE) HEART FAILURE Status: Chronic (10) GERD (gastroesophageal reflux disease) Code(s): K21.9 - GASTRO-ESOPHAGEAL REFLUX DISEASE WITHOUT ESOPHAGITIS Status: Chronic (11) HTN (hypertension) Code(s): I10 - ESSENTIAL (PRIMARY) HYPERTENSION Status: Chronic (12) Hypothyroidism Code(s): E03.9 - HYPOTHYROIDISM, UNSPECIFIED Status: Chronic - Plan cont current plan of care, continue antibiotics * change to po cipro * resume home meds * echo has not reported * pt wants to go home * medication reviewed as below * symptomatic treatment * see discharge owen. Review of Systems - Review of Systems ENT: negative: Ear Pain, Ear Discharge, Nose Pain, Nose Discharge, Nose Congestion, Mouth Pain, Mouth Swelling, Throat Pain, Throat Swelling, Other Respiratory: negative: Cough, Dry, Shortness of Breath, Hemoptysis, SOB with Excertion, Pleuritic Pain, Sputum, Wheezing Cardiovascular: negative: chest pain, palpitations, orthopnea, paroxysmal nocturnal dyspnea, edema, light headedness, other Gastrointestinal: negative: Nausea, Vomiting, Abdominal Pain, Diarrhea, Constipation, Melena, Hematochezia, Other Genitourinary: negative: Dysuria, Frequency, Incontinence, Hematuria, Retention , Other Musculoskeletal: negative: Neck Pain, Shoulder Pain, Arm Pain, Back Pain, Hand Pain, Leg Pain, Foot Pain, Other - Medications/Allergies Allergies/Adverse Reactions: Allergies Allergy/AdvReac Type Severity Reaction Status Date / Time No Known Drug Allergies Allergy Verified 01/29/16 12:05 Medications: Current Medications Acetaminophen (Tylenol) 650 mg PO Q4H PRN PRN Reason: Headache/Fever/Mild Pain (1-3) Hydrocodone Bitart/Acetaminophen ([place] 5/325) 1 tab PO Q4H PRN PRN Reason: Moderate Pain (4-6) Hydrocodone Bitart/Acetaminophen ([place] 10/325) 2 tab PO Q4HR PRN PRN Reason: SEVERE Pain (7-10) Alprazolam (Xanax) 1 mg PO BID PRN PRN Reason: Anxiety/Restlessness/Sleep Artificial Tears (Tears Naturale) 2 drop EA EYE PRN PRN PRN Reason: Dry Eyes Aspirin (Ecotrin) 81 mg PO DAILY TEJAL Last Admin: 07/20/18 09:42 Dose: Not Given Bisacodyl (Dulcolax) 10 mg PO DAILYPRN PRN PRN Reason: Constipation Bisacodyl (Dulcolax) 10 mg MS DAILYPRN PRN PRN Reason: Constipation Carvedilol (Coreg) 6.25 mg PO BID [facility] Last Admin: 07/20/18 21:01 Dose: 6.25 mg Estradiol (Estrace) 2 mg PO HS [facility] Last Admin: 07/20/18 21:02 Dose: 2 mg Guaifenesin (Robitussin Sf) 200 mg PO Q4H PRN PRN Reason: Cough Guaifenesin (Mucinex) 600 mg PO Q12HR [facility] Last Admin: 07/20/18 21:02 Dose: 600 mg Heparin Sodium (Porcine) (Heparin) 5,000 units SC BID [facility] Last Admin: 07/20/18 21:08 Dose: Not Given Hydralazine HCl (Apresoline) 10 mg SLOW IVP Q4H PRN PRN Reason: SBP > 180 and HR < 70 Ceftriaxone Sodium 1 gm/ (Sodium Chloride) 100 mls @ 200 mls/hr IVPB Q24HR [facility] Last Admin: 07/20/18 09:41 Dose: 100 mls Levothyroxine Sodium (Synthroid) 1 mcg PO QAM [facility] Last Admin: 07/20/18 09:43 Dose: Not Given Loperamide HCl (Imodium) 2 mg PO PRN PRN PRN Reason: Diarrhea/Loose Stools Loratadine (Claritin) 10 mg PO DAILYPRN PRN PRN Reason: Sinus Symptoms Mineral Oil/White Petrolatum (Eucerin Cream) 0 gm TOP BIDPRN PRN PRN Reason: Dry Skin Ondansetron HCl (Zofran Odt) 4 mg PO Q6H PRN PRN Reason: Nausea/Vomiting Ondansetron HCl (Zofran) 4 mg IVP Q6H PRN PRN Reason: Nausea/Vomiting Pantoprazole Sodium (Protonix) 40 mg PO DAILY [facility] Last Admin: 07/20/18 09:44 Dose: 40 mg Pregabalin (Lyrica) 75 mg PO BID [facility] Last Admin: 07/20/18 21:03 Dose: 75 mg Saccharomyces Boulardii (Florastor) 250 mg PO DAILY [facility] Last Admin: 07/20/18 09:44 Dose: Not Given Senna/Docusate Sodium (Senokot S) 2 tab PO BID PRN PRN Reason: Constipation Sodium Chloride (Mathis Nasal [place] 0.65%) 0 ml EA NARE QIDPRN PRN PRN Reason: Nasal Congestion Sodium Chloride (Flush - Normal Saline) 10 ml IVF Q12HR TEJ[facility] Last Admin: 07/20/18 21:04 Dose: 10 ml Sodium Chloride (Flush - Normal Saline) 10 ml IVF PRN PRN PRN Reason: Saline Flush Throat Lozenges (Cepastat Lozenges) 1 gia PO Q2H PRN PRN Reason: Sore Throat Tramadol HCl (Ultram) 100 mg PO Q12H PRN PRN Reason: Pain (1-5) Venlafaxine HCl (Effexor Xr) 75 mg PO HS [facility] Last Admin: 07/20/18 21:03 Dose: Not Given Zolpidem Tartrate (Ambien) 5 mg PO HSPRN PRN PRN Reason: Insomnia Last Admin: 07/21/18 00:21 Dose: 5 mg
--- NOTE | 2018-07-21 12:03 | DIS ---
DATE OF ADMISSION: 07/18/2018 DATE OF DISCHARGE: 07/21/2018 PRIMARY CARE PHYSICIAN: Cristobal Pugh M.D. DISCHARGE DISPOSITION: Home. PRIMARY DISCHARGE DIAGNOSES: 1. Acute kidney failure, improved. 2. Metabolic acidosis, resolved. 3. Near syncope due to hypotension. 4. Hypotension, resolved. 5. Urinary tract infection. 6. Fall at home. SECONDARY DISCHARGE DIAGNOSES: Hypothyroidism, hypertension, gastroesophageal reflux disease, chroni c kidney disease stage C, diastolic heart failure, anxiety and depression, normocytic normochromic an emia. PRIMARY PROCEDURES/OPERATIONS: None. RADIOLOGICAL INVESTIGATION: CT of brain, normal. Renal ultrasound, normal. SIGNIFICANT LABORATORY DATA: WBC 4.5, hemoglobin 7.9, platelets 214. Sodium 136, potassium 4.3, BUN 22, creatinine 1.21, calcium 8.6. BNP 505. Urinalysis suggestive of UTI. Serum ketones 0.27. Uri ne culture, negative. DISCHARGE MEDICATIONS: Ciprofloxacin 500 mg p.o. b.i.d. for 5 days. Patient will resume all her pre vious home medications. [place]yer two tablets q.4 hourly p.r.n., tramadol 50 mg 2 tablets q.4 hourly p.r .n., Xanax 1 mg p.r.n., Coreg 12.5 mg daily, Pristiq 50 mg at bedtime, Estrace 2 mg at bedtime, Amisha nix 40 mg daily, Lyrica 150 mg b.i.d., Phenergan 25 mg p.r.n., 0.5 mg at bedtime, hydrochloroth iazide 12.5 mg daily, Lisinopril 5 mg daily. CONTRAINDICATIONS: None. CODE STATUS: FULL CODE. INPATIENT CONSULTANTS: None. ALLERGIES: No known drug allergy. DISCHARGE PLAN: Post hospital, the patient will follow up with primary care physician in 1 week. HOSPITAL COURSE: A 67-year-old female who was initially evaluated at [facility]. At home, she had a fall and she has to crawl to get help. She called Paramedics. At that time, patient was found hypotensive. The patient required central line placement in the emergency ro om, she was given transient vasopressor support as well as IV fluid and subsequently, she was transfe rred to our hospital. Patient was treated with IV fluid. She was admitted to telemetry floor and sh e had acute kidney failure upon testing which was improved with IV fluid. We did echocardiography du ring this admission and the result is pending. The patient had urinalysis suggestive of infection an d that is why we started on Rocephin and on discharge, we prescribed Cipro for 5 more days. Her cult ure was negative. Her blood pressure improved, and she was up to her normal. She was ambulatory, to lerating p.o. well, and today, she expressed her wish to go home. The patient is seen and examined at bedside today. Please see my progress note from today for furthe r detail.
== END 2018-07-21 10:10 | disposition home or self-care (01) | DRG 683 ==
LOC: ERS 11:53 → 2NO 13:06
PROVIDERS: ADMIT Internal Medicine; ATTEND Internal Medicine
DX: N17.9 Acute kidney failure, unspecified (principal); I50.32 Chronic diastolic (congestive) heart failure; N39.0 Urinary tract infection, site not specified; E87.2 Acidosis; G90.50 Complex regional pain syndrome I, unspecified; I11.0 Hypertensive heart disease with heart failure; K21.9 Gastro-esophageal reflux disease without esophagitis; Z85.3 Personal history of malignant neoplasm of breast; Z92.21 Personal history of antineoplastic chemotherapy; F41.9 Anxiety disorder, unspecified; F32.9 Major depressive disorder, single episode, unspecified; G47.00 Insomnia, unspecified; Z79.899 Other long term (current) drug therapy; I95.9 Hypotension, unspecified; R55 Syncope and collapse; D64.9 Anemia, unspecified
CPT/HCPCS: 70450; 76770; 80048; 80053; 81001; 82010; 82570; 83605; 83735; 83880; 84300; 85025; 87086; 93005; 93306; G8978-GP-CK; G8979-GP-CK; G8980-GP-CK; G8987-GO-CI; G8988-GO-CI; G8989-GO-CI; J0696; J1644; J7050

== ENCOUNTER 2018-07-30 22:28 | Inpatient (IN) | payer MEDICARE ==
[2018-07-30] MEDS ORDERED: Ondansetron ODT 4 MG TAB PO PRN (22:43)
[2018-07-30] MEDS ORDERED: Ondansetron PF 4 MG/2 ML Vial IVP PRN (22:43)
[2018-07-30] MEDS ORDERED: Acetaminophen 650 MG Suppository PR PRN (22:43)
[2018-07-30] MEDS ORDERED: Bisacodyl 5 MG TAB PO PRN (22:43)
[2018-07-30] MEDS ORDERED: Senokot S 8.6-50 MG TAB PO PRN (22:43)
[2018-07-30] MEDS ORDERED: ALPRAZolam 1 MG TAB PO PRN (22:48)
[2018-07-31 01:51] VITALS: BMI 31.1
[2018-07-31] MEDS: Sodium Chloride 0.9% 1,000 ML IV SCH ×3 (03:18→12:30)
--- NOTE | 2018-07-31 03:22 | HP ---
CHIEF COMPLAINT: Left shoulder fracture, rhabdomyolysis and acute kidney injury. HISTORY OF PRESENT ILLNESS: This is a 67-year-old female with past medical history of hypothyroidism ; hypertension; breast cancer diagnosed in 1986, treated with chemoradiation; reflex sympathetic dyst rophy; pulmonary edema x2; GERD; presented with left shoulder fracture status post fall. Per nursing staff and electronic medical records, patient was at home and patient stated that she was grabbing h er drink after the drink fell and in the process of trying to grab her drink, she fell and hurt her s houlder. The patient stated that she laid down until 2:00 p.m. when she was found. The patient was then sent to [facility]. In the ED, the patient was worked up and the patient was found to have rhabdomyolysis and left shoulder fracture plus acute on chronic kidney injury, to the fact the patie nt had been at [facility]. The patient was transferred here so that we can f urther continued care for the patient. Per the sign out from [facility] ED physician, did not h ave Orthopedic Service in the hospital at the time. Therefore, we are admitting this patient, so the patient can be seen by an Orthopedics and also so that we can further manage the patient medically. At this point, the patient endorses left shoulder pain. Otherwise, patient denies chest pain, palpi tations, headache, fever, shortness of breath, abdominal pain. REVIEW OF SYSTEMS: Positive for left shoulder pain, otherwise as documented in the HPI. All other s ystems were reviewed and are negative. PAST MEDICAL HISTORY: 1. Hypothyroidism. 2. Hypertension. 3. Chronic kidney disease. 4. Diastolic heart failure. 5. Anxiety. 6. Depression. 7. Hypertension. FAMILY HISTORY: Reviewed and noncontributory to this visit. PAST SURGICAL HISTORY: The patient has plate in her left wrist and patient has had appendectomy, car pal tunnel surgery, cholecystectomy, hysterectomy, oophorectomy, bilateral mastectomy with reconstruc tion. PAST PSYCHIATRIC HISTORY: Anxiety, depression, insomnia. SOCIAL HISTORY: The patient lives at home by herself. No history of tobacco, alcohol or illicit adolfo g abuse. The patient is able to ambulate without a walker or a cane. ALLERGIES: No known drug allergies. MEDICATIONS: 1. Estradiol 2 mg tab p.o. at bedtime. 2. Hydrochlorothiazide 12.5 mg. 3. Hydrocodone/acetaminophen. 4. Lisinopril 5 mg. 5. Protonix 40 mg. 6. Promethazine 25 mg. 7. Triazolam 0.25 mg tablet p.o. at bedtime. 8. Xanax 1 mg tablet. 9. Carvedilol 12.5 mg tablet. 10. Pristiq 50 mg. 11. Pregabalin 75 mg. 12. Tramadol 50 mg tablet. PHYSICAL EXAMINATION: VITAL SIGNS: The patient's temperature is 97.3, pulse of 74, respiratory rate of 14, oxygen saturati on of 98, and blood pressure of 112/61. GENERAL: The patient is currently awake, alert, and oriented x3, very lethargic because the patient took a lot of pain medications of morphine, [place]. The patient also takes Lyrica, so patient has bee n very somnolent. HEENT: Normocephalic, atraumatic. Pupils are equally round and reactive to light. Extraocular move ments are intact. No scleral icterus. No conjunctival pallor. LUNGS: Clear to auscultation bilaterally. No wheezing, no rales, no rhonchi appreciated. CARDIOVASCULAR: Positive S1, S2, regular rate and rhythm. No murmurs, no gallops or rubs appreciate d. ABDOMEN: Soft, nontender, nondistended, obese abdomen, positive bowel sounds in all quadrants. EXTREMITIES: The patient has purple ecchymosis and some erythema and edema at the left shoulder. Le ft shoulder is currently in a sling. The patient has good pulses, at the radial pulse bilaterally of the upper extremity. The patient has restricted range of motion at the left shoulder, right shoulde r, elbow and wrist. The patient has 5/5 strength and good range of motion at the right compared to t he left. For lower extremities, the patient has 5/5 lower extremity strength. Good pulses bilateral ly. No edema noted. NEUROLOGIC: Cranial nerves II-XII grossly intact. No neurologic deficits noted. PSYCHIATRIC: The patient is alert, oriented x3, not in acute distress. The patient has normal affec t. ASSESSMENT AND PLAN: This is a 67-year-old female being admitted for: 1. Mechanical fall. Currently, patient has been transferred to the hospital to be seen by an orthop edist since patient was found to have a left shoulder fracture. 2. Rhabdomyolysis. The patient CPK is elevated. Right now, patient is on IV fluids. We will makenna nue the patient on IV fluids. We will continue to monitor the patient closely. 3. Left shoulder fracture. The patient currently has the shoulder in a sling. We are going to give patient p.r.n. pain medications. We will monitor the patient closely. We have consulted Orthopedic s to evaluate the patient further. 4. Acute on chronic kidney injury. The patient's creatinine is currently elevated at 2.2 per the ED physician sign out. At this point, we are giving patient gentle hydration. We will monitor the pat ient's creatinine and will follow up on morning labs. 5. History of hypertension. Currently, patient's blood pressure is under control and continuing to monitor the patient's blood pressures closely. 6. Diastolic heart failure. Currently, patient is not in failure. The patient is stable. We will continue to monitor the patient and will continue patient on her home medications. 7. Hypothyroidism. We will continue patient on current treatment. 8. Deep venous thrombosis and gastrointestinal prophylaxis. We will do SCDs and Pepcid.
[2018-07-31 05:42] LABS: ALT (SGPT) 12 U/L (8-55); AST (SGOT) 43 U/L (5-34); Albumin 3.3 g/dL (3.4-4.8); Alkaline Phosphatase 133 U/L (40-150); Anion Gap 16 mmol/L (10-20); BUN (Urea Nitrogen) 23 mg/dL (9.8-20.1); Bilirubin, Total 0.3 mg/dL (0.2-1.2); Calc. Creatinine Clearance 38 mL/min (70-130); Calcium 8.4 mg/dL (7.8-10.44); Carbon Dioxide 18 mmol/L (23-31); Chloride 109 mmol/L (98-107); Estimated GFR-MDRD 25; Globulin 3.9 g/dL (2.4-3.5); Glucose 117 mg/dL (80-115); Phosphorus 4.6 mg/dL (2.3-4.7); Protein, Total 7.2 g/dL (6.0-8.3); Sodium 136 mmol/L (136-145)
[2018-07-31 06:08] LABS: Potassium 6.8 mmol/L (3.5-5.1)
[2018-07-31] MEDS: Acetaminophen 325 MG TAB PO PRN ×2 (06:46→19:20)
[2018-07-31] MEDS ORDERED: Calcium Gluconate 4.6 MEQ in Sodium Chloride 0.9% 100 ML IVPB SCH (07:30)
[2018-07-31] MEDS ORDERED: Furosemide 20 MG/2 ML VIAL SLOW IVP SCH (08:10)
[2018-07-31] MEDS ORDERED: Famotidine/PF 20 mg/2ml Vial SLOW IVP SCH ×2 (09:00→21:00)
--- NOTE | 2018-07-31 09:02 | RAD ---
LEFT SHOULDER 2 VIEWS: Date: 07/31/18 HISTORY: Fracture. FINDINGS: There is a fracture of the left humeral neck with anterior displacement over 1.0 cm. There is mild im paction and foreshortening. The fracture extends to lesser and greater tuberosities. Age-indeterminate fracture distal clavicle. IMPRESSION: 1. Comminuted humeral neck fracture with extension to the lesser and greater tuberosities with anter ior displacement of the humerus over 1.0 cm. 2. Age-indeterminate fracture distal clavicle may be chronic as this is seen on 06/13/18 exam. POS: TPC
[2018-07-31] MEDS: Pregabalin 75 MG CAP PO SCH ×2 (10:03→21:27)
[2018-07-31] MEDS ORDERED: Furosemide 40 MG/4 ML VIAL ONE (10:11)
[2018-07-31] MEDS: Enoxaparin Sodium 30 MG/0.3 ML SYRINGE SC SCH ×2 (10:16→10:45)
[2018-07-31] MEDS: Carvedilol 6.25 MG TAB PO SCH (10:44)
--- NOTE | 2018-07-31 11:23 | CON ---
DATE OF CONSULTATION: 07/31/2018 CONSULTING PHYSICIAN: Dr. Segun Young HISTORY OF PRESENT ILLNESS: We were asked by Tiara to see the patient. The patient fell and broke h er left humeral neck. She was seen in [place]. Due to the rhabdomyolysis and the fracture, it was d ecided to send the patient to our facility. The patient has a fair amount of pain in that left shoul jaquelin, especially with any movement. She is currently slinged and she has good movement for what she i s able to do to bilateral upper extremities. Denies any numbness and tingling and does not recall an y memory loss or hitting her head. PAST MEDICAL HISTORY: Positive for thyroid, hypertension, kidney disease, heart failure, anxiety, de pression, hypertension. PAST SURGICAL HISTORY: She has had some wrist surgery, appendectomy, carpal tunnel, cholecystectomy, hysterectomy, oophorectomy, bilateral mastectomy with a reconstruction. PSYCHIATRIC HISTORY: Anxiety, depression, insomnia. SOCIAL HISTORY: Resides at home by herself. No alcohol or nicotine products. The patient usually h as no issues and takes care of herself. ALLERGIES: None. MEDICATIONS: Estradiol, hydrochlorothiazide, [place], lisinopril, Protonix, promethazine, triazolam, X anax, carvedilol, Pristiq, Pregabalin, tramadol. REVIEW OF SYSTEMS: The patient has an extensive review of systems with RSD, chronic pain syndrome. Currently, her main complaints are of being very tired and somnolent, body is a little achy as is the shoulder is painful. Rest of review of systems negative. PHYSICAL EXAMINATION: GENERAL: Tired, somnolent female resting in bed, currently in no acute distress. Speech clear. Ans wers questions simple, but appropriate, oriented to person, month and she knows she is at [place]. HEENT: Normal exam. Face is symmetric. Tongue midline. NECK: Supple, trachea midline. RESPIRATORY: No distress. EXTREMITIES: Upper extremities, equal size, shape, symmetry, normal bulk and tone. Movement limited on the left due to shoulder fracture and pain. She has good sensations and pulses to bilateral uppe r extremities. Lower extremity normal exam. ASSESSMENT: 1. Multiple health issues. 2. Left shoulder humeral neck fracture. PLAN: Patient can be slinged. We will see her back in the clinic in 3-4 weeks. Tiara will take car e of her medical issues. There is no surgical intervention needed at this time. I explained this to the patient. Due to the somnolence I will come back and speak with her in the morning and see if alfonso jean has further questions.
[2018-07-31 12:24] LABS: Anion Gap 10 mmol/L (10-20); BUN (Urea Nitrogen) 20 mg/dL (9.8-20.1); Calc. Creatinine Clearance 44 mL/min (70-130); Calcium 8.5 mg/dL (7.8-10.44); Carbon Dioxide 23 mmol/L (23-31); Chloride 107 mmol/L (98-107); Estimated GFR-MDRD 29; Glucose 106 mg/dL (80-115); Potassium 5.1 mmol/L (3.5-5.1); Sodium 135 mmol/L (136-145)
--- NOTE | 2018-07-31 12:49 | PQF ---
ODALYS SAMANIEGO ERIC [id number] [facility]- [id number] CLINICAL DOCUMENTATION IMPROVEMENT CLARIFICATION FORM: ICD-10 Updated PLEASE DO AN ADDENDUM TO THE PROGRESS NOTE WITH ANY DOCUMENTATION UPDATES OR ADDITIONS AND CARRY THROUGH TO DC SUMMARY. THANK YOU. DATE: 07-31-18 ATTN: DR. ADRIANA MORA Please exercise your independent, professional judgment in responding to the clarification form. Clinical indicators are provided on the bottom of this form for your review Please check appropriate box(s): [ ] Traumatic Rhabdomyolysis [ ] Nontraumatic Rhabdomyolysis [ ] Other [ ] Unable to determine For continuity of documentation, please document condition throughout progress notes and discharge summary. Thank You. CLINICAL INDICATORS - SIGNS / SYMPTOMS/ LABS are present in the medical record: H&P: RHABDOMYOLYSIS . THE PATIENT CPK IS ELEVATED RISK FACTORS 11-16 H&P (MAGALY): S/P MECHANICAL FALL - LAID DOWN UNTIL 2PM WHEN SHE WAS FOUND. TREATMENT 11-16 H&P (MAGALY) IV FLUIDS THANK YOU, LYNNE (This form is maintained as a part of the permanent medical record) 2014 [employer]. All Rights Reserved Lynne Calle RN, BS [email or web address] [facility]
--- NOTE | 2018-07-31 18:06 | PDOC.PN ---
- Subjective Encounter Start Date: 07/31/18 Encounter Start Time: 18:00 Subjective: f/u for encephalopathy, fall and L humeral neck fx. States some L shoulder -: pain but mentally clearing. - Objective Resuscitation Status: Resuscitation Status FULL:Full Resuscitation MAR Reviewed: Yes Vital Signs & Weight: Vital Signs (12 hours) Temp Pulse Resp BP Pulse Ox 07/31/18 15:41 98.0 F 74 20 112/69 100 07/31/18 10:48 98.1 F 78 22 H 119/71 96 07/31/18 07:54 97.8 F 87 22 H 135/76 97 07/31/18 07:20 97 Weight Weight 192 lb 9.6 oz I&O: 07/30/18 07/31/18 08/01/18 06:59 06:59 06:59 Intake Total 1200 Output Total 1325 Balance -125 Result Diagrams: 07/31/18 11:52 Additional Labs: Laboratory Tests 07/20/18 07/31/18 05:45 04:56 Creatinine 1.21 H 2.00 H Radiology Reviewed by me: Yes (L shoulder x-ray - comminuted humeral neck fx, displaced) Phys Exam - Physical Examination Constitutional: NAD HEENT: PERRLA, sclera anicteric, oral pharynx no lesions Neck: no nodes, no JVD, supple, full ROM Respiratory: no wheezing, no rales, no rhonchi, clear to auscultation bilateral S1, S2 Cardiovascular: RRR, no significant murmur, no rub, gallop Gastrointestinal: soft, non-tender, no distention, positive bowel sounds L shoulder with mild prox edema, +TTP Musculoskeletal: pulses present Neurological: normal sensation, moves all 4 limbs Psychiatric: A&O x 3 Skin: normal turgor, cap refill <2 seconds Dx/Plan (1) Acute metabolic encephalopathy Code(s): G93.41 - METABOLIC ENCEPHALOPATHY Status: Acute Comment: Secondary to polypharmacy, improved, hold psychotropics and sedating therapy (2) Traumatic rhabdomyolysis Code(s): T79.6XXA - TRAUMATIC ISCHEMIA OF MUSCLE, INITIAL ENCOUNTER Status: Acute Comment: Secondary to fall, IVF's, repeat CPK in am (3) Fall at home Code(s): W19.XXXA - UNSPECIFIED FALL, INITIAL ENCOUNTER; Y92.009 - UNSP PLACE IN UNSP [facility]ENCE [facility] Status: Acute Comment: Repetitive falls after reviewing medical record, appears to be secondary to polypharmacy (4) Acute kidney failure Status: Acute Comment: Improved with IVF's, avoid nephrotoxic meds and limit contrast exposure (5) Polypharmacy Code(s): Z79.899 - OTHER CUSTODIAL (CURRENT) DRUG THERAPY Status: Chronic Comment: + Benzo's, opiates and recent PCP, Case mgmt for resource options (6) Left humeral fracture Code(s): S42.302A - [facility] FRACTURE OF SHAFT OF HUMERUS, LEFT ARM, INIT Status: Acute Comment: No acute surgical intervention, plan for outpt Ortho follow up in 3-4 weeks, arm sling - Plan PT/OT, case management social worker, DVT proph w/SCDs Stable currently -: Continue IVF's -: PT for functional assessment -: LUE arm sling -: AM lab: BMP, CBC, CPK * .
[2018-07-31] MEDS: traMADol HCl 50 MG TAB PO PRN (19:40)
[2018-07-31] MEDS ORDERED: DESVENLAFAXINE SUCCINATE PO SCH (21:00)
[2018-07-31] MEDS ORDERED: Morphine 2 MG/ML SYRINGE SLOW IVP SCH (21:15)
[2018-07-31] MEDS: Venlafaxine HCl XR 75 MG CAP PO SCH (21:29)
[2018-08-01] MEDS: Acetaminophen 325 MG TAB PO PRN (03:34)
[2018-08-01] MEDS: traMADol HCl 50 MG TAB PO PRN (03:35)
[2018-08-01 05:41] LABS: Anion Gap 12 mmol/L (10-20); BUN (Urea Nitrogen) 18 mg/dL (9.8-20.1); CK (CPK) 2875 U/L (29-168); Calc. Creatinine Clearance 49 mL/min (70-130); Calcium 8.7 mg/dL (7.8-10.44); Carbon Dioxide 24 mmol/L (23-31); Chloride 107 mmol/L (98-107); Estimated GFR-MDRD 34; Glucose 90 mg/dL (80-115); Potassium 4.5 mmol/L (3.5-5.1); Sodium 138 mmol/L (136-145)
[2018-08-01 06:38] LABS: Band 3 % (5-11); Hypochromia SLIGHT = 6-15 cells (100X) (0-5/hpf); Lymphocytes 32 % (21-51); MDiff Complete? YES; Mean Corpuscular HGB CONC 31.2 g/dL (32.0-36.0); Mean Corpuscular Hemoglobin 26.3 pg (27.0-31.0); Mean Corpuscular Volume 84.3 fL (78.0-98.0); Mean Platelet Volume 8.1 fL (7.4-10.4); Neutrophil 65 % (42-75); PLT Morphology Comment Appears Adequate; Platelet Count 233 thou/uL (130-400); RBC Distribution Width 13.5 % (11.5-14.5); Red Blood Cell (RBC) Count 2.66 mill/uL (4.20-5.40); White Blood Cell (WBC) Count 5.3 thou/uL (4.8-10.8)
[2018-08-01] MEDS: Carvedilol 6.25 MG TAB PO SCH (08:43)
[2018-08-01] MEDS: Pregabalin 75 MG CAP PO SCH ×2 (08:44→20:48)
[2018-08-01] MEDS: Enoxaparin Sodium 30 MG/0.3 ML SYRINGE SC SCH (08:52)
[2018-08-01] MEDS: Sodium Chloride 0.9% 1,000 ML IV SCH (08:52)
[2018-08-01] MEDS ORDERED: Fentanyl 100 MCG/2 ML VIAL SLOW IVP SCH (11:00)
[2018-08-01] MEDS ORDERED: Ropivacaine HCl/PF 250 ML in Premix Bag 1 BAG NERVE BLCK SCH (12:28)
[2018-08-01] MEDS ORDERED: Promethazine HCl 25 MG/ML VIAL IM PRN (12:28)
[2018-08-01] MEDS ORDERED: HYDROcodone/Acetaminophen 10/325 mg Tablet PO PRN ×2 (12:28)
[2018-08-01] MEDS ORDERED: traMADol HCl 50 MG TAB PO PRN ×2 (12:28)
[2018-08-01] MEDS ORDERED: Zolpidem Tartrate 5 MG TAB PO PRN (12:28)
[2018-08-01] MEDS ORDERED: Ondansetron PF 4 MG/2 ML Vial IVP PRN (12:28)
[2018-08-01] MEDS ORDERED: Fentanyl 100 MCG/2 ML VIAL IV PRN (12:30)
[2018-08-01] MEDS ORDERED: Ropivacaine 0.2% HCl/PF (40 MG/20 ML VIAL) ONE (13:03)
[2018-08-01] MEDS ORDERED: Ropivacaine 0.5% HCl/PF (150 MG/30 ML VIAL) ONE (13:03)
--- NOTE | 2018-08-01 13:10 | PDOC.PN ---
- Subjective Encounter Start Date: 08/01/18 Encounter Start Time: 09:00 Pt seen for followup re: metabolic encephalopathy. Denies chest pain. Has left shoulder pain. Denies fevers or chills. - Objective Resuscitation Status: Resuscitation Status FULL:Full Resuscitation MAR Reviewed: Yes Vital Signs & Weight: Vital Signs (12 hours) Temp Pulse Resp BP BP Pulse Ox 08/01/18 11:55 97.8 F 69 16 137/70 95 08/01/18 08:44 93 L 08/01/18 08:43 116/71 08/01/18 07:45 97.9 F 71 12 116/71 93 L Weight Weight 192 lb 9.6 oz I&O: 07/31/18 08/01/18 08/02/18 06:59 06:59 06:59 Intake Total 1200 1080 Output Total 1325 450 Balance -125 630 Result Diagrams: 08/01/18 05:03 08/01/18 05:03 Additional Labs: Labs reviewed by me Phys Exam - Physical Examination Obese HEENT: moist MMs, sclera anicteric, oral pharynx no lesions, 2+ tonsils Neck: no nodes, no JVD, supple, full ROM Respiratory: no wheezing, no rales, no rhonchi, clear to auscultation bilateral Cardiovascular: RRR, no rub S1, S2 Gastrointestinal: soft, non-tender, no distention, positive bowel sounds Left shoulder in sling Neurological: moves all 4 limbs Psychiatric: normal affect, A&O x 3 Dx/Plan (1) Acute metabolic encephalopathy Code(s): G93.41 - METABOLIC ENCEPHALOPATHY Status: Acute Comment: Secondary to polypharmacy, improved (2) Left humeral fracture Code(s): S42.302A - UNSP FRACTURE OF SHAFT OF HUMERUS, LEFT ARM, INIT Status: Acute Comment: No acute surgical intervention, plan for outpt Ortho follow up in 3-4 weeks (3) Traumatic rhabdomyolysis Code(s): T79.6XXA - TRAUMATIC ISCHEMIA OF MUSCLE, INITIAL ENCOUNTER Status: Acute Comment: Improving, Secondary to fall (4) Acute kidney failure Status: Acute Comment: Improved with IVF's, avoid nephrotoxic meds - Plan * . Review of Systems - Review of Systems Constitutional: negative: fever, chills, sweats, weakness, malaise Respiratory: negative: Cough, Shortness of Breath, SOB with Excertion, Pleuritic Pain, Wheezing Cardiovascular: negative: chest pain, palpitations, orthopnea, paroxysmal nocturnal dyspnea, edema, light headedness Gastrointestinal: negative: Nausea, Vomiting, Abdominal Pain, Diarrhea, Constipation, Melena, Hematochezia Genitourinary: negative: Dysuria, Frequency, Incontinence, Hematuria, Retention Musculoskeletal: Shoulder Pain. negative: Neck Pain, Arm Pain, Back Pain, Hand Pain, Leg Pain, Foot Pain - Medications/Allergies Allergies/Adverse Reactions: Allergies Allergy/AdvReac Type Severity Reaction Status Date / Time No Known Drug Allergies Allergy Verified 01/29/16 12:05 Medications: Current Medications Acetaminophen (Tylenol) 650 mg PO Q4H PRN PRN Reason: Headache/Fever/Mild Pain (1-3) Last Admin: 08/01/18 03:34 Dose: 650 mg Acetaminophen (Tylenol) 650 mg CA Q4H PRN PRN Reason: Headache/Fever/Mild Pain (1-3) Hydrocodone Bitart/Acetaminophen (Grethel 10/325) 1 tab PO Q4H PRN PRN Reason: Pain (1-3) Hydrocodone Bitart/Acetaminophen (Grethel 10/325) 2 tab PO Q4H PRN PRN Reason: Severe Pain (7-10) 2ND LINE Alprazolam (Xanax) 1 mg PO DAILYPRN PRN PRN Reason: Anxiety Bisacodyl (Dulcolax) 10 mg PO DAILYPRN PRN PRN Reason: Constipation Carvedilol (Coreg) 12.5 mg PO DAILY [facility] Last Admin: 08/01/18 08:43 Dose: 12.5 mg Enoxaparin Sodium (Lovenox) 30 mg SC 0900 [facility] Last Admin: 08/01/18 08:52 Dose: Not Given Famotidine (Pepcid) 20 mg PO 2100 [facility] Fentanyl (Sublimaze) 50 mcg IV Q1H PRN PRN Reason: Breakthrough Pain Ropivacaine 250 ml/ Device 250 mls @ 6 mls/hr NERVE BLCK INF [facility] Ondansetron HCl (Zofran Odt) 4 mg PO Q6H PRN PRN Reason: Nausea/Vomiting Ondansetron HCl (Zofran) 4 mg IVP Q6H PRN PRN Reason: Nausea/Vomiting Ondansetron HCl (Zofran) 4 mg IVP Q6H PRN PRN Reason: Nausea/Vomiting Pregabalin (Lyrica) 150 mg PO BID [facility] Last Admin: 08/01/18 08:44 Dose: 150 mg Promethazine HCl (Phenergan) 12.5 mg IM Q4H PRN PRN Reason: Nausea Senna/Docusate Sodium (Senokot S) 2 tab PO BIDPRN PRN PRN Reason: Constipation Sodium Chloride (Flush - Normal Saline) 10 ml IVF Q12HR [facility] Last Admin: 08/01/18 08:53 Dose: Not Given Sodium Chloride (Flush - Normal Saline) 10 ml IVF PRN PRN PRN Reason: Saline Flush Tramadol HCl (Ultram) 100 mg PO Q4H PRN PRN Reason: Pain Last Admin: 08/01/18 03:35 Dose: 100 mg Tramadol HCl (Ultram) 50 mg PO Q6H PRN PRN Reason: Mild Pain (1-3) 1ST LINE Tramadol HCl (Ultram) 100 mg PO Q6H PRN PRN Reason: Moderate Pain 4-6 1ST LINE Venlafaxine HCl (Effexor Xr) 75 mg PO HS [facility] Last Admin: 07/31/18 21:29 Dose: Not Given Zolpidem Tartrate (Ambien) 5 mg PO HSPRN PRN PRN Reason: Insomnia
[2018-08-01] MEDS ORDERED: guaiFENesin ER 600 MG TAB PO PRN (16:59)
[2018-08-01] MEDS ORDERED: Famotidine 20 MG TAB PO SCH (21:00)
[2018-08-01] MEDS: Venlafaxine HCl XR 75 MG CAP PO SCH (21:13)
[2018-08-01 22:19] VITALS: TEMP 97.8
[2018-08-02] MEDS ORDERED: Haloperidol Lactate 5 MG/ML VIAL ONE (07:36)
[2018-08-02] MEDS ORDERED: Haloperidol Lactate 5 MG/ML VIAL IM SCH (07:45)
[2018-08-02] MEDS ORDERED: Ropivacaine 0.2% 550 ML 550 ML NERVE BLCK SCH (08:00)
[2018-08-02] MEDS: Pregabalin 75 MG CAP PO SCH (11:02)
[2018-08-02] MEDS: Enoxaparin Sodium 30 MG/0.3 ML SYRINGE SC SCH (11:02)
[2018-08-02] MEDS: Carvedilol 6.25 MG TAB PO SCH (11:02)
[2018-08-02 11:03] VITALS: BP 116/71
--- NOTE | 2018-08-02 22:37 | DIS ---
PRIMARY CARE PROVIDER: Dr. Cristobal Pugh. DATE OF ADMISSION: 07/30/2018 The patient left against medical advice on 08/02/2018. HOSPITAL COURSE: Ms. Jim is a pleasant 67-year-old lady, who was admitted to [facility] on 07/30/2018 for left shoulder fracture, rhabdomyolysis and acute kidney injury. Please refer to Dr. Barrientos's history and physical note dated 07/31/2018 for further details. She was seen b y Orthopedic Surgery Service. She was started on a sling for left shoulder humeral neck fracture. S he was also seen by pain management service. She had acute on chronic renal insufficiency at the conrad e of admission. She had a creatinine of 2.00 on 07/31/2018, which improved to 1.54 on 08/02/2018. On 08/02/2018, Ms. Jim decided not to stay in the hospital. She left the hospital against medical ad vice.
== END 2018-08-02 10:14 | disposition left against medical advice (07) | DRG 562 ==
LOC: SJJU 22:59
PROVIDERS: ADMIT Internal Medicine; ATTEND Internal Medicine
DX: S42.212A Unspecified displaced fracture of surgical neck of left humerus, initial encounter for closed fracture (principal); G93.41 Metabolic encephalopathy; N17.9 Acute kidney failure, unspecified; I50.32 Chronic diastolic (congestive) heart failure; I13.0 Hypertensive heart and chronic kidney disease with heart failure and stage 1 through stage 4 chronic kidney disease, or unspecified chronic kidney disease; T79.6XXA Traumatic ischemia of muscle, initial encounter; E03.9 Hypothyroidism, unspecified; K21.9 Gastro-esophageal reflux disease without esophagitis; Z85.3 Personal history of malignant neoplasm of breast; F41.9 Anxiety disorder, unspecified; F32.9 Major depressive disorder, single episode, unspecified; G47.00 Insomnia, unspecified; Z90.13 Acquired absence of bilateral breasts and nipples; Z79.899 Other long term (current) drug therapy; W18.30XA Fall on same level, unspecified, initial encounter; Z79.891 Long term (current) use of opiate analgesic
CPT/HCPCS: 36415; 80048; 80053; 80069; 82550; 83735; 85007; 85027; A4306; J1630; J1650; J1940; J2270; J2795; J3010; J7050; S0028